=== PATIENT | male | born 1960 | race Caucasian/White ===

== ENCOUNTER 2021-02-24 09:28 | Emergency (ER) | payer BC ==
[2021-02-24] MEDS ORDERED: Boostrix 0.5 ML (Tdap) VIAL ONE (09:35)
[2021-02-24] MEDS ORDERED: Lidocaine 1% (PF) 30 ML VIAL ONE (09:42)
[2021-02-24] MEDS ORDERED: Bupivacaine 0.5% 10 ML VIAL ONE (09:42)
[2021-02-24] MEDS ORDERED: Bacitracin 1 PK ONE (10:29)
== END 2021-02-24 10:36 | disposition home or self-care (01) ==
LOC: ERS 09:28
DX: S61.210A Laceration without foreign body of right index finger without damage to nail, initial encounter (principal); W45.8XXA Other foreign body or object entering through skin, initial encounter
CPT/HCPCS: 12001; 90715; J2001; J3490